=== PATIENT | female | born 1955 | race American Indian/Alaskan Native ===

== ENCOUNTER 2024-01-15 06:50 | Day surgery (SDC) | payer MEDICARE, BC ==
[~2024-01-15 06:50] MED LIST: Midazolam 1 MG/ML 2 ML SDV ONE; fentaNYL 100 MCG/2 ML SDV ONE
[2024-01-15] MEDS ORDERED: Midazolam 1 MG/ML 2 ML SDV IV ONE (06:51)
[2024-01-15] MEDS ORDERED: fentaNYL 100 MCG/2 ML SDV IV ONE (06:51)
[2024-01-15] MEDS: Dextrose 5%-0.45% NaCl 1,000 ML IV SCH (07:37)
[2024-01-15] MEDS: fentaNYL 100 MCG/2 ML SDV IV ONE ×2 (08:27→08:28)
[2024-01-15] MEDS: Midazolam 1 MG/ML 2 ML SDV IV ONE ×3 (08:28→08:38)
== END 2024-01-15 10:15 | disposition home or self-care (01) ==
LOC: DL.ENDO 06:50
PROVIDERS: ATTEND Internal Medicine Gastroenterology
DX: D12.0 Benign neoplasm of cecum (principal); D12.5 Benign neoplasm of sigmoid colon; K57.30 Diverticulosis of large intestine without perforation or abscess without bleeding; I12.9 Hypertensive chronic kidney disease with stage 1 through stage 4 chronic kidney disease, or unspecified chronic kidney disease; E11.22 Type 2 diabetes mellitus with diabetic chronic kidney disease; N18.30 Chronic kidney disease, stage 3 unspecified; G47.33 Obstructive sleep apnea (adult) (pediatric); G20.A1 Parkinson's disease without dyskinesia, without mention of fluctuations; E78.5 Hyperlipidemia, unspecified; E66.9 Obesity, unspecified; Z68.26 Body mass index [BMI] 26.0-26.9, adult
CPT/HCPCS: 88305; J2250; J3010; J7042